=== PATIENT | female | born 1960 | race Caucasian/White ===

== ENCOUNTER → 2023-05-08 08:19 | Outpatient (REF) | payer BC, SELFPAY | LOC: DHCBC MAIN 08:19 | PROVIDERS: ATTENDING PHYSICIAN Nurse Practitioner; FAMILY PHYSICIAN Family Medicine | DX: R06.09 Other forms of dyspnea (principal) | CPT/HCPCS: 93306 ==

== ENCOUNTER → 2024-05-13 14:49 | Outpatient (REF) | payer BC, MEDICARE, SELFPAY | LOC: HWRCS 14:49 | PROVIDERS: ATTENDING PHYSICIAN Internal Medicine; FAMILY PHYSICIAN Family Medicine | DX: I48.0 Paroxysmal atrial fibrillation (principal); I48.92 Unspecified atrial flutter; I10 Essential (primary) hypertension | CPT/HCPCS: 93306 ==

== ENCOUNTER → 2024-05-29 09:27 | Outpatient (REF) | payer MEDICARE, BC, SELFPAY ==
[2024-05-29 10:25] LABS: % Basophils 0.6 % (0-2); % Eosinophils 7.5 % (0-6); % Immature Granulocytes 0.3 % (0-0.5); % Monocytes 11.1 % (1.7-9.3); % Neutrophils 46.5 % (42.2-75.2); Absolute Eosinophils 0.3 10^3/uL (0-0.7); Absolute Lymphocytes 1.2 10^3/uL (1.2-3.4); Absolute Monocytes 0.4 10^3/uL (0.1-0.6); Absolute Neutrophils 1.7 10^3/uL (1.4-6.5); Hematocrit 42.5 % (37.0-47.0); Hemoglobin 14.5 g/dL (12.0-16.0); Mean Corp Hgb Conc. 34.1 g/dL (33.0-37.0); Mean Corpuscular Hgb 33.2 pg (27.0-31.0); Mean Corpuscular Volume 97.3 fL (81.0-99.0); Mean Platelet Volume 9.1 fL (7.4-10.4); Nucleated Red Blood Cells % 0 %; Platelet Count 229 10^3/uL (130-400); Red Blood Cell Count 4.37 10^6/uL (4.20-5.40); Red Cell Dist. Width 12.6 % (11.5-14.5); White Blood Cell Count 3.6 10^3/uL (4.8-10.8)
[2024-05-29 10:37] LABS: ALT (SGPT) 34 U/L (0-35); AST (SGOT) 25 U/L (14-36); Albumin 4.1 g/dl (3.5-5.0); Alkaline Phosphatase 75 U/L (38-126); Blood Urea Nitrogen 18 mg/dl (7-17); Carbon Dioxide 28 mmol/L (22-30); Chloride 107 mmol/L (98-107); Glucose 90 mg/dl (70-99); Potassium 4.5 mmol/L (3.5-5.1); Sodium 142 mmol/L (135-145); Total Bilirubin 0.5 mg/dl (0.2-1.3); Total Protein 6.6 g/dl (6.3-8.2); eGFR > 60.00
== END ==
LOC: SDSPAT 09:27
PROVIDERS: ATTENDING PHYSICIAN Internal Medicine Cardiovascular Disease; FAMILY PHYSICIAN Family Medicine; OTHER PHYSICIAN Internal Medicine
DX: I48.0 Paroxysmal atrial fibrillation (principal); I48.92 Unspecified atrial flutter
CPT/HCPCS: 36415; 80053; 85025; 86850; 86900; 86901

== ENCOUNTER 2024-06-05 07:55 | Day surgery (SDC) | payer MEDICARE, BC, SELFPAY ==
[2024-05-29 09:33] VITALS: BMI 33.1
[2024-06-05] VITALS (13 sets, daily range): BP systolic 84–143; BP diastolic 45–91; BMI 31.6
[2024-06-05] MEDS: TRANSDERM-SCOP 1 PATCH TRANSDERM (08:40)
[2024-06-05 12:11] LABS: ACT-LR - POC 348 Seconds (116-155)
[2024-06-05 12:32] LABS: ACT-LR - POC 348 Seconds (116-155)
--- NOTE | 2024-06-05 13:10 | ITS.CL.ABL ---
Impregnating Helper - Ablation
Ablation
Procedure Report:
AFIB / A flutter ablation:
Ms. Jackson is a very pleasant 63 yr old woman with medical history significant for symptomatic paroxysmal atrial fibrillation s/p AF ablation on 05/08/22 with PVI and CTI flutter ablation is here in the EP lab for atrial fibrillation / flutter ablation
Date of Procedure:
06/05/2024
Indications:
Symptomatic atrial fibrillation / atrial flutter
Pre-Operative Diagnosis:
Atrial fibrillation / atrial flutter / Atrial tachycardia
Post-Operative Diagnosis:
Atrial fibrillation / atrial flutter / Atrial tachycardia
Procedure Performed:
Redo atrial fibrillation ablation
Roof line formation for atypical roof dependent atrial flutter
Posterior wall isolation ablation
Right atrial focal atrial tachycardia with Eliel Terminalis origin
Performing Physician:
Greg Harris MD
Assistants:
EP staff
Anesthesia:
See anesthesia records
Detailed Description of the Procedure:
Written informed consent was obtained from the patient after a full explanation of the risks and benefits of the procedure including the risks of sedation and anesthesia.
The patient was brought to the electrophysiology laboratory in stable condition in fasting state. Continuous electrocardiographic and hemodynamic monitoring was initiated.
The initial rhythm was sinus.
The procedure site was meticulously prepared with surgical scrub and allowed to dry with no pooling. Sterile draping was applied to cover the procedure site. The image intensifier was draped with sterile bag and positioned over the patient. After
infusion of local anesthetic, vascular access was obtained under ultrasound guidance and sheaths were placed over guide wire as detailed below.
The images of the ultrasound of the femoral vessels were stored in patient chart.
Sheath and Catheter Placement:
Given patient renal transplant, long sheaths were used for the acess
Sheaths:
��������� Agilis sheath in right femoral vein upgraded from 8Fr in right femoral vein
��������� 9Fr in left femoral vein
Catheters:
��������� The Affera Sphere 9 catheter -bidirectional D/F� - at locations of HRA, RV, LA and LV.
��������� ICE catheter -AccuNav -� at locations of RA, SVC, and RV.
��������� Decapolar Bard in RA and CS
Heparin was initiated after the access was obtained.
Right atrial mapping and pacing:
The CS was placed in the CS and the right atrial mapping was done using Affera sphere. The CS pacing showed intact block at the CTI line. The trans isthmus conduction time was 160 msec.
There was frequent ectopy noted at the superior eliel and the RAA.
Intracardiac ECHO:
An 8-Frisian AcuNav intracardiac ECHO (ICE) probe was advanced through the 9-Frisian sheath in the left femoral vein into the right atrium under fluoroscopic and ICE ultrasound image guidance and a baseline ECHO study was performed. The left atrial
size was dilated. There was trace tricuspid regurgitation. The aortic valve was grossly normal. There was normal left ventricular size and function. There is a trace pericardial effusion. The RADHA has normal low velocities. The pulmonary had good
flow identified.
During the procedure, ICE was used for monitoring of complications, guidance of trans-septal puncture, monitor the catheter position and tracking ablation lesions. No change in the pericardial space noted throughout the procedure.
Trans-septal Puncture:
Heparin was initiated and infused to maintain appropriate ACT. A J-tipped guidewire was advanced through into the superior vena cava under fluoroscopic and ICE guidance. The Agilis sheath with BRK needle was advanced into the superior vena cava over
the guidewire. The apparatus was withdrawn until it was in contact with the fossa ovalis. The position was adjusted based on fluoroscopy and ultrasound images from ICE. Under fluoroscopic, hemodynamic and ICE ultrasound guidance, left atrium was
cannulated by advancing the needle. Once atrial septum was cannulated, the needle was pulled back and the guide wire was advanced through the needle into the left atrium. The guide wire was advanced into the left superior pulmonary vein. Both the
sheath and the dilator was advanced into the left atrium. The dilator with the needle was withdrawn. Blood was aspirated from the Agilis sheath and arterial blood confirmed. The sheath was flushed. Saline injection noted into the left atrium on ICE.
The waveform of the LA pressure was recorded. The mapping catheter was advanced in the Agilis sheath into the left pulmonary vein.
3D Electroanatomic Mapping:
Using the Sphere 9 Affera catheter advanced through Agilis sheath into the left atrium, an electroanatomic map (EAM) of the left atrium was created using eFansa� mapping system with [employer]-1 software. The map was used for localization of catheter
position and tacking of ablation lesions. The EAM of the left atrium showed a total of 4 PVs with two left and the two right sided pulmonary veins with all electrically isolated from the body the LA. It showed scattered scar on the posterior wall of
the LA. The LA was dilated in size.
There was active AF noted inside the veins but was isolated from the body of the atrium and contained within the pulm veins.
Following the EAM, preparation were made for ablation.
Ablation:
Ablation # 1: Atypical atrial flutter / Roof line Formation:
Given silent pulmonary veins, the decision was made to proceed with roof line formation for the AF/Flutter.
Pulsed field ablation was performed using an open irrigation, bidirectional, contact sensing, dual energy ablation catheter (eFansa sphere -9). A set of pulsed field ablations were placed on the roof line connecting the left superior pulmonary vein
ablation lesions to the right superior pulmonary vein lesions rings.
Confirmation of the PVI and bidirectional block:
Following achievement of entrance block at the pulmonary veins, pacing from the Sphere 9 affera catheter in each of the four veins at 20 milliamps for 4 milliseconds showed entrance and exit block.
The LA was mapped with The eFans[employer]� mapping system with Prism-1 software in sinus rhythm confirming the line of block at the ablation lesions lines.
Ablation # 2: Posterior wall isolation with the Box lesions set Formation:
There was a significant fractionation seen in the posterior wall and LA AF foci along with CFAE made it clear as the posterior wall is critical in maintaining the atrial fibrillation and the decision was made to isolate the posterior wall by
creating a �Box� lesions.
A set of Pulsed field ablations were placed on the floor line connecting the left inferior pulmonary vein ablation lesions to the right inferior pulmonary vein lesions rings.
The sphere 9 in the posterior wall showed entrance block and the pacing from the posterior wall showed no exit from the box lesions confirming the exit block.
Ablation # 3: Posterior wall ablation:
With the box lesion created and block confirmed, the decision was made to ablate the posterior wall severing epicardial connections and decision was made to create the Z ablation on the posterior wall.
A series of ablations were placed connecting the junction of left superior pulmonary vein and the roof line to the junction of right inferior pulmonary vein and the floor line ablating the ganglion plexi next to both antra.
Isuprel stimulation test:
Isuprel infusion was initiated. The heart rate and blood pressure was monitored. Isuprel was started at 1 mcg/min. There was adequate tachycardia response noted at 2 mcg/min dose. The tachycardia was 120 bpm. The Isuprel was discontinued.
The tachycardia was mapped in the LA and it showed passive conduction into the LA with earliest at the María bundle area.
Decision was made to move catheter to RA.
Ablation # 4: Atrial Tachycardia:
The tachycardia of 470-520 msec was mapped in the RA. The wobble and the EAM showed focal origin in the right atrium.
The EAM showed the location on the superior eliel. �The catheter bump terminated into sinus rhythm.
The Isuprel was restarted and tachycardia was induced at 4 mcg/min dose and pacing maneuvers.
Isuprel was stopped once tachycardia induced.
Ablation of focal AT:
The sinus node was mapped in sinus rhythm and was noted away from t focal origin of the tachycardia. The focal AT location was marked and ablations were placed. The tachycardia terminated into sinus with catheter bumping into it again. Further
consolidated lesions were placed.
The ablated focus was then connected to the IVC with series of ablation to avoid generation of atrial flutter around the scar created due to AT ablation.
EP study:
Sinus Node Function: The sinus node functions are within acceptable normal range.
Atrioventricular Arabella Function: �Normal AV conduction noted.
Procedure End
ICE study was done again that showed no epicardial accumulation. No complications noted.
Following the completion of the EP study, catheters were removed. Protamine 40 mg was given at the end of the procedure and ACT was checked repeatedly. The sheaths were removed and hemostasis achieved with VASCADE and manual compression after
acceptable ACT is achieved.
Left atrial Pressure:
Mean LA pressure was 12mmHg
Mean RA pressure was 5mmHg
Estimated Blood loss:
<10 cc
Specimens Removed:
None.
Implants / Devices:
None
Urine output:
None
Packs / Drains/ Tubes:
None
Instrument / Sponge Count Correct:
Yes
Complications of the Procedure:
None
Condition of Patient at Time of Transfer:
Hemodynamically stable with no neurological or vascular compromise.
Summary:
��������� Successful atrial fibrillation ablation with Posterior wall isolation, roof line of bloc formation, Posterior wall substrate ablation, focal atrial tachycardia from eliel terminalis ablation
Previous PVI and CTI line of blocks were confirmed
Figures from the Procedure:
CTI line of block
PVI still intact
AT at [place]
Sinus - SA node
[2024-06-05] MEDS: TYLENOL 650 MG PO (13:32)
--- NOTE | 2024-06-05 15:43 | W.PN.UPDATE ---
Update Note
Progress Note Update
63 yo WF s/p PVI (same day). Initially she had low bp which responded well to IVF bolus. She denies cp, sob, maame diet, voiding, amb w/o dizziness, R fem site c/d/i no HT, soft Vascade, EKG SR. She will resume Eliquis tonight and continue metoprolol
and diltiazem. Activity restrictions reviewed. She will f/u [employer] in 2 weeks. She is for d/c home after 4pm.
== END 2024-06-05 16:01 | disposition home or self-care (01) ==
LOC: CATH 07:55
PROVIDERS: ATTENDING PHYSICIAN Internal Medicine Cardiovascular Disease; FAMILY PHYSICIAN Family Medicine; OTHER PHYSICIAN Internal Medicine
DX: I48.0 Paroxysmal atrial fibrillation (principal); I48.4 Atypical atrial flutter; Z79.01 Long term (current) use of anticoagulants; Z79.899 Other long term (current) drug therapy; I47.19 Other supraventricular tachycardia; Z88.5 Allergy status to narcotic agent
CPT/HCPCS: C1894; C1730; C1766; C1892; C1733; 85347; 93005; 93655; 93656; C1760

== ENCOUNTER → 2024-11-07 08:01 | Outpatient (REF) | payer MEDICARE, BC, SELFPAY | LOC: HWRAD 08:01 | PROVIDERS: ATTENDING PHYSICIAN Family Medicine | DX: Z12.31 Encounter for screening mammogram for malignant neoplasm of breast (principal); M85.80 Other specified disorders of bone density and structure, unspecified site; M85.89 Other specified disorders of bone density and structure, multiple sites | CPT/HCPCS: 77063; 77067; 77080 ==

== ENCOUNTER 2024-12-05 06:29 | Day surgery (SDC) | payer MEDICARE, BC, SELFPAY | END 2024-12-05 10:51 | disposition home or self-care (01) | LOC: GI 06:29 | PROVIDERS: ATTENDING PHYSICIAN Internal Medicine Gastroenterology; FAMILY PHYSICIAN Family Medicine | DX: Z12.11 Encounter for screening for malignant neoplasm of colon (principal); R19.5 Other fecal abnormalities; K64.9 Unspecified hemorrhoids; K57.30 Diverticulosis of large intestine without perforation or abscess without bleeding | CPT/HCPCS: G0121 ==